=== PATIENT | female | born 1935 | race Two or more races ===

== ENCOUNTER 2017-03-28 20:51 | Inpatient (IN) | payer MEDICARE, MEDICAID ==
[~2017-03-28] VITALS: Ht 152.4 cm; Wt 68.0 kg
[~2017-03-28 20:51] MED LIST: ESCI10TA PO; IBUP-1482 PO; METF500T4 PO; NAPR500T PO; TRAM50TA2 PO; ZOLP5TAB2 PO
--- NOTE | 2017-03-28 21:14 | NUR ---
PT BIB PA WITH A C/O RLE PAIN S/P FALL X 2 WKS AGO WHILE GETTING INTO HER WHEELCHAIR. PT IS THAI SPEAKING ONLY. PT HAS ECCHYMOSIS ON RT THIGH AND RT KNEE. RLE EXTERNALLY ROTATED. RT LEG SHORTENING NOTED. PT IS AA&O X2.
--- NOTE | 2017-03-28 21:34 | NUR ---
ANNABELLA PARRISH IS AT THE BEDSIDE FOR EVAL. ALIRIO ZAPIEN IS AT THE BEDSIDE FOR TRANSLATION.
[2017-03-28 21:51] LABS: BASOPHILS % (AUTO) 0.2 % (0.0-2.0); EOSINOPHILS # (AUTO) 0.1 /CMM (0.0-0.7); EOSINOPHILS % (AUTO) 0.8 % (0.0-6.0); HEMATOCRIT 26 % (33-45); HEMOGLOBIN 8.9 g/dL (11.5-14.8); LYMPHOCYTES # (AUTO) 1.8 /CMM (0.8-4.8); LYMPHOCYTES % (AUTO) 11.6 % (20.0-44.0); MEAN CORPUSCULAR HEMOGLOBIN 30 PG (26.0-33.0); MEAN CORPUSCULAR HGB CONC 35 g/dl (31.0-36.0); MEAN CORPUSCULAR VOLUME 88 fL (82-100); MONOCYTES % (AUTO) 6.7 % (2.0-12.0); NEUTROPHILS # (AUTO) 12.5 /CMM (1.8-8.9); NEUTROPHILS % (AUTO) 80.7 % (43.0-81.0); PLATELET COUNT (AUTO) 626 /CMM (150-450); RDW COEFFICIENT OF VARIATION 13.6 (11.5-15.0); RED BLOOD CELL COUNT(AUTO) 2.95 MIL/uL (4.0-5.2); WHITE BLOOD COUNT (AUTO) 15.4 K/uL (4.3-11.0)
[2017-03-28] MEDS ORDERED: IV SET PRIMARY 1 EA INFUS.SET MC ONE (21:55)
[2017-03-28] MEDS ORDERED: IV NS 0.9% 1,000 ML ONE (21:55)
[2017-03-28] MEDS ORDERED: MORPHINE SULFATE INJ 4 MG/ML DISP.SYRIN ONE (21:55)
[2017-03-28] MEDS ORDERED: ONDANSETRON HCL/PF 4 MG/2 ML VIAL ONE (21:55)
[2017-03-28 21:59] LABS: CALCIUM, SERUM 8.6 mg/dL (8.5-10.1); POTASSIUM 4.3 mmol/L (3.5-5.1)
[2017-03-28] MEDS ORDERED: IV NS 0.9% 1,000 ML BAG IV ONE (22:00)
[2017-03-28] MEDS ORDERED: ONDANSETRON HCL/PF 4 MG/2 ML VIAL IVP ONE (22:00)
[2017-03-28] MEDS ORDERED: MORPHINE SULFATE INJ 2 MG/ML DISP.SYRIN IV ONE (22:00)
[2017-03-28 22:03] LABS: INR 1.09 (0.87-1.13); PROTHROMBIN TIME 11.4 SECS (9.5-12.7)
[2017-03-28 22:05] LABS: ALBUMIN 2.7 g/dL (3.4-5.0); BILIRUBIN,DIRECT 0.1 mg/dL (0.0-0.2); BILIRUBIN,TOTAL 0.4 mg/dL (0.2-1.0); TOTAL PROTEIN, SERUM 6.8 g/dL (6.4-8.2)
--- NOTE | 2017-03-28 22:50 | NUR ---
PT APPEARS TO BE SLEEPING SOUNDLY. NO S/S OF PAIN OR DISTRESS. VSS.
--- NOTE | 2017-03-28 23:12 | NUR ---
[facility] PAGED, DENY SEBASTIAN MOLD MAKER PLASTER
--- NOTE | 2017-03-28 23:21 | NUR ---
ANNABELLA FRAGA IS SPEAKING TO THE PT'S DAUGHTER ON THE PHONE RE: PLAN OF CARE.
--- NOTE | 2017-03-28 23:22 | NUR ---
ARNEL CALLED, PLANISHING HAMMER OPERATOR, TRANSFERRED CALL TO JOHNIE WISEMAN)
--- NOTE | 2017-03-28 23:22 | NUR ---
CALLED NURSING SUP. FOR MS BED
--- NOTE | 2017-03-28 23:33 | NUR ---
Alexandra GATES NP IS AT THE BEDSIDE.
[2017-03-29] VITALS (11 sets, daily range): BP systolic 114–154; BP diastolic 54–94
[2017-03-29] MEDS ORDERED: Z GUARD REMEDY 2 OZ OINT TP PRN
[2017-03-29] MEDS ORDERED: MAG HYDROX/AL HYDROX/SIMETH 30 ML UDC PO PRN
--- NOTE | 2017-03-29 01:30 | NUR ---
RN NOTE; ADMITTED A 81Y/O , F, ALERT, TAMAZIGHT SPEAKING. BREATHING EVENLY. NO SOB, NO DISTRESS. W/ C/O PAIN UPON MOVEMENT OTHER MCNEIL STABLE AND PAIN FREE. SKIN INTACT HOWEVER W/ BRUISES ON RLE . IV SITE INTACT . NEEDS ATTENDED . VS: WNL. HEART MONITOR WAS PLACED READING SR. CALL LIGHT WITHIN REACH, BED ALARM ON. PLACED A CALL TO [facility] AND SPOKE TO [facility] REGARDING IMMUNIZATION STATUS . BUT NO DATA AVAILABLE TO F/U. WILL CONT TO MONITOR.
[2017-03-29] MEDS ORDERED: IV SET PRIMARY PUMP SET 1 EA INFUS.SET MC ONE (01:52)
[2017-03-29] MEDS ORDERED: IV NS 0.9% 1,000 ML ONE (01:53)
[2017-03-29] MEDS: IV NS 0.9% 1,000 ML IV PRN ×2 (02:09→20:14)
[2017-03-29] MEDS ORDERED: IV D5W 50 ML IV ONE (02:50)
[2017-03-29] MEDS ORDERED: CEFTRIAXONE 1 G VIAL ONE (02:50)
[2017-03-29] MEDS ORDERED: SECONDARY IV SET 1 EA INFUS.SET MC ONE (02:53)
[2017-03-29] MEDS: CEFTRIAXONE 1 G in IV D5W 50 ML IV SCH (02:58)
[2017-03-29] MEDS ORDERED: DEXTROSE 50%-WATER 50 ML DISP.SYRIN IV PRN (03:00)
--- NOTE | 2017-03-29 06:13 | NUR ---
RN NOTE; PT IN BED AWAKE AND ALERT. BREATHING EVENLY. NO SOB, NO DISTRESS. NO ACUTE CHANGES SINCE ADMISSION. ON TELE MONITORING READING SR. W/ C/O PAIN UPON REPOSITIONING OTHER MCNEIL STABLE. CLEANED AND DRIED. NPO AT THIS TIME. CALL LIGHT WITHIN REACH. WILL CONT TO MONITOR AND WILL ENDORSE TO AM SHIFT FOR DEBORA.
[2017-03-29] MEDS ORDERED: MORPHINE SULFATE INJ 2 MG/ML DISP.SYRIN ONE (06:27)
[2017-03-29] MEDS: MORPHINE SULFATE INJ 2 MG/ML DISP.SYRIN IV PRN ×4 (06:33→21:48)
--- NOTE | 2017-03-29 06:35 | NUR ---
RN NOTE; MORPHINE GIVEN FOR C/O SEVERE PAIN AND SCREAMING. NPO FOR POSSIBLE SX. NEEDS ATTENDED. WILL CONT TO MONITOR .
[2017-03-29] MEDS: BLOOD SUGAR DIAGNOSTIC 1 EACH STRIP IN SCH ×4 (06:43→21:58)
--- NOTE | 2017-03-29 08:00 | NUR ---
RN NOTES RECEIVED PATIENT IN BED, SLEEPING WITH NO SIGNS OF DISTRESS. PATIENT IS ERITREAN SPEAKING ONLY, NO SIGNS OF PAIN OR DISCOMFORT NOTED. PATIENT IS NPO FOR POSSIBLE SURGERY TODAY, WILL FOLLOW UP WITH MD. ALL NEEDS MET, KEPT CLEAN AND DRY.
[2017-03-29 08:43] LABS: BASOPHILS % (AUTO) 0.3 % (0.0-2.0); EOSINOPHILS # (AUTO) 0.2 /CMM (0.0-0.7); EOSINOPHILS % (AUTO) 2.3 % (0.0-6.0); HEMATOCRIT 25 % (33-45); HEMOGLOBIN 8.2 g/dL (11.5-14.8); LYMPHOCYTES # (AUTO) 1.7 /CMM (0.8-4.8); LYMPHOCYTES % (AUTO) 15.3 % (20.0-44.0); MEAN CORPUSCULAR HEMOGLOBIN 29 PG (26.0-33.0); MEAN CORPUSCULAR HGB CONC 33 g/dl (31.0-36.0); MEAN CORPUSCULAR VOLUME 89 fL (82-100); MONOCYTES # (AUTO) 0.8 /CMM (0.1-1.30); MONOCYTES % (AUTO) 7.2 % (2.0-12.0); NEUTROPHILS # (AUTO) 8.1 /CMM (1.8-8.9); NEUTROPHILS % (AUTO) 74.9 % (43.0-81.0); PLATELET COUNT (AUTO) 513 /CMM (150-450); RDW COEFFICIENT OF VARIATION 14.8 (11.5-15.0); RED BLOOD CELL COUNT(AUTO) 2.78 MIL/uL (4.0-5.2); WHITE BLOOD COUNT (AUTO) 10.8 K/uL (4.3-11.0)
[2017-03-29] MEDS: ESCITALOPRAM OXALATE (10 MG) 10 MG TABLET PO SCH (09:00)
[2017-03-29 09:06] LABS: IRON, SERUM 23 ug/dl (50-175); TOTAL IRON BINDING CAPACITY 209 ug/dl (250-450)
[2017-03-29 09:09] LABS: THYROID STIMULATING HORMONE 2.694 uIU/mL (0.358-3.74)
[2017-03-29 09:15] LABS: CALCIUM, SERUM 8.3 mg/dL (8.5-10.1); CREATININE 0.8 mg/dL (0.6-1.3); MAGNESIUM 1.6 mg/dL (1.8-2.4); PHOSPHORUS 3.1 mg/dL (2.5-4.9); POTASSIUM 4.3 mmol/L (3.5-5.1)
[2017-03-29 09:54] LABS: FERRITIN 161 ng/mL (8-388); TROPONIN I < 0.017 ng/mL (0.00-0.056)
[2017-03-29] MEDS ORDERED: IV NS 0.9% 250 ML IV ONE (10:40)
[2017-03-29] MEDS ORDERED: BLOOD IV SET 1 EA INFUS.SET MC ONE (10:40)
[2017-03-29] MEDS: PANTOPRAZOLE 40 MG VIAL IV SCH (12:03)
[2017-03-29] MEDS: INSULIN REGULAR, HUMAN 100 UNIT/ML 3 ML VIAL SQ PRN ×2 (12:37→17:41)
[2017-03-29] MEDS: HYDROCODONE/APAP 5/325MG 1 EACH TABLET PO PRN ×3 (14:30→23:57)
--- NOTE | 2017-03-29 15:30 | NUR ---
RN NOTES PATIENT REMAINS STABLE IN NO ACUTE DISTRESS. PATIENT NOTED SCREAMING AND CRYING, GIVEN MORPHINE WITH GOOD RELIEF. PATIENT SEEN AND EVALUATED BY DR. BRENNER. MD DISCUSSED PLAN OF CARE WITH FAMILY. 1` UNIT OF PRBCS ORDERED AND ADMINISTERED, PATIENT TOLERATED WELL, NO COMPLICATIONS NOTED. PATIENT IS NO LONGER NPO, PER DR BRENNER RESUME DIET, SURGERY WILL BE HELD AND REASSESS IN AM.
--- NOTE | 2017-03-29 19:20 | NUR ---
RN OPEN NOTES RECEIVED PATIENT AWAKE IN BED SCREAMING IN PAIN GUARDING RIGHT LEG. PER RN PATIENT HAD JUST BEEN GIVEN NORCO 5/325 FOR PAIN. ALERT AND ORIENTED. NO SIGNS OF DISTRESS, BREATHING EVEN AND UNLABORED. IV ACCESS IN RAC, PATENT AND INTACT, NO SIGNS OF REDNESS OR INFILTRATION. BED IN LOW LOCKED POSITION WITH SIDE RAILS X3. CALL LIGHT WITHIN REACH. WILL CONTINUE TO MONITOR. Addendum: 03/30/17 at 0042 by MARIA GUADALUPE ALARCON RN PATIENT ON TELE WITH SR NOTED
--- NOTE | 2017-03-29 19:31 | NUR ---
RN CLOSING NOTES PATIENT NOTED SCREAMING AND GUARDING RIGHT HIP MOST OF THE SHIFT. PAIN MEDS GIVEN WITH SOME RELIEF. INSERTED MOHR CATH 16 SERBIAN, PATENT AND DRAINING WELL. NO ACUTE CHANGES IN CONDITION NOTED. ALL NEEDS MET, KEPT CLEAN AND DRY.
[2017-03-29] MEDS: ONDANSETRON HCL/PF 4 MG/2 ML VIAL IVP PRN (20:13)
--- NOTE | 2017-03-29 21:48 | NUR ---
RN NOTES ADMINISTERED MORPHINE 2MG FOR PAIN IN RIGHT HIP. PATIENT NOTED TO BE SCREAMING AND GUARDING RIGHT LEG. WILL CONTINUE TO MONITOR. Addendum: 03/30/17 at 0036 by MARIA GUADALUPE ALARCON RN NOTED BP 133/84 P96
--- NOTE | 2017-03-29 22:30 | NUR ---
RN NOTES DID NOT GIVE INSULIN COVERAGE FOR BS 139. PATIENT HAS POOR PO INTAKE. WILL CONTINUE TO MONITOR.
--- NOTE | 2017-03-29 23:00 | NUR ---
RN NOTES P/C- SPOKE WITH DAUGHTER VESTA, INFORMED HER THAT PATIENT IS SCHEDULED FOR SURGERY TOMORROW AM AT 1100 AND WE DO NOT HAVE CONSENT YET. PER DAUGHTER SHE NEEDS TO DISCUSS WITH HER FAMILY THEY HAVE NOT DECIDED ON THE SURGERY YET. INFORMED HER THAT IF SHE HAS ANY FURTHER QUESTIONS REGARDING THE SURGERY SHE CAN COME IN TOMORROW AM BEFORE SURGERY OR SPEAK WITH SURGEON OVER THE PHONE.
--- NOTE | 2017-03-29 23:35 | NUR ---
RN NOTES P/C FROM GRAND DAUGHTER DAGMAR, PER GRANDDAUGHTER HER FAMILY HAS DECIDED TO CANCEL SURGERY FOR TOMORROW AM THEY WANT MORE TIME TO MAKE A DECISION AND DO MORE RESEARCH. INFORMED HER THAT SHE CAN SPEAK WITH SURGEON IN THE AM IF THEY HAVE CONCERNS AND THAT IF WE CANCEL TOMORROWS SURGERY WE DO NOT KNOW WHEN PATIENT WILL BE ABLE TO RESCHEDULE. SHE STATED THEY WOULD STILL LIKE TO CANCEL THE SURGERY AT THIS TIME. CHARGE NURSE MADE AWARE. I WILL INFORM MD IN THE AM AND WILL CONTINUE TO MONITOR.
--- NOTE | 2017-03-29 23:57 | NUR ---
RN NOTES ADMINISTERED COLUSA FOR PAIN IN RIGHT HIP. PATIENT NOTED TO BE SCREAMING AND GUARDING RIGHT LEG, NODES HER HEAD YES WHEN ASKED IF SHES HAVING PAIN. WILL CONTINUE TO MONITOR. Addendum: 03/30/17 at 0036 by MARIA GUADALUPE ALARCON RN NOTED BP 119/65 P 91
[2017-03-30] VITALS (17 sets, daily range): BP systolic 119–148; BP diastolic 64–88
[2017-03-30] MEDS: CEFTRIAXONE 1 G in IV D5W 50 ML IV SCH (02:22)
[2017-03-30] MEDS: MORPHINE SULFATE INJ 2 MG/ML DISP.SYRIN IV PRN ×4 (02:38→22:27)
--- NOTE | 2017-03-30 02:38 | NUR ---
RN NOTES ADMINISTERED MORPHINE 2MG FOR PAIN IN RIGHT HIP. PATIENT NOTED TO BE SCREAMING, FACIAL GRIMACING AND GUARDING RIGHT LEG. BP NOTED 134/61 P87. WILL CONTINUE TO MONITOR.
--- NOTE | 2017-03-30 06:30 | NUR ---
RN NOTES DID NOT GIVE INSULIN COVERAGE FOR BS 158. PATIENT HAS BEEN NPO SINCE MIDNIGHT AND IS SCHEDULED FOR SURGERY THIS AM.
--- NOTE | 2017-03-30 06:40 | NUR ---
RN NOTES ADMINISTERED MORPHINE 2MG FOR PAIN IN RIGHT HIP. PATIENT NOTED TO BE SCREAMING, FACIAL GRIMACING AND GUARDING RIGHT LEG. BP NOTED 120/76 P89. WILL CONTINUE TO MONITOR.
--- NOTE | 2017-03-30 07:01 | NUR ---
RN CLOSING NOTES PATIENT AWAKE IN BED. ALERT AND ORIENTED. NO SIGNS OF DISTRESS, BREATHING EVEN AND UNLABORED. IV ACCESS IN RAC WITH NS INFUSING, PATENT AND INTACT, NO SIGNS OF REDNESS OR INFILTRATION. NO SIGNIFICANT CHANGES THROUGH THE NIGHT. ALL NEEDS MET. BED IN LOW LOCKED POSITION WITH SIDE RAILS X3. CALL LIGHT WITHIN REACH. WILL ENDORSE TO AM SHIFT FOR DEBORA. Addendum: 03/30/17 at 0720 by MARIA GUADALUPE ALARCON RN PATIENT ON TELE MONITORING WITH SR/JCT AT TIME NOTED.
--- NOTE | 2017-03-30 07:05 | NUR ---
RN NOTES DR. GARCIA MADE AWARE OF FAMILY NOT GIVING CONSENT FOR SURGERY AND WANTING TO CANCEL TODAY'S SCHEDULED SURGERY. CHARGE NURSE ALSO AWARE. WILL INFORM AM RN.
[2017-03-30] MEDS: BLOOD SUGAR DIAGNOSTIC 1 EACH STRIP IN SCH ×4 (07:30→22:35)
--- NOTE | 2017-03-30 07:30 | NUR ---
RN MS NOTES. RECEIVED PATIENT BED AWAKE SCREAMING, PAIN MEDICATION WAS GIVEN BY NIGHT RN. NO APPARENT DISTRESS NOTED, NO SOB. PATIENT IS NPO FRO POSSIBLE SURGERY, FAMILY UNSURE IF THE WANT THE SURGERY, NO CONSENT SIGNED. IV LINE PATENT F/C DRAINING WELL. ALL NEEDS MET, CALL LIGHT WITHIN REACH
[2017-03-30] MEDS: HYDROCODONE/APAP 5/325MG 1 EACH TABLET PO PRN ×2 (08:52→14:35)
[2017-03-30] MEDS: ESCITALOPRAM OXALATE (10 MG) 10 MG TABLET PO SCH (09:00)
[2017-03-30] MEDS: PANTOPRAZOLE 40 MG VIAL IV SCH (09:38)
[2017-03-30 09:44] LABS: BASOPHILS % (AUTO) 0.2 % (0.0-2.0); EOSINOPHILS # (AUTO) 0.2 /CMM (0.0-0.7); EOSINOPHILS % (AUTO) 2.1 % (0.0-6.0); HEMATOCRIT 28 % (33-45); HEMOGLOBIN 9.3 g/dL (11.5-14.8); LYMPHOCYTES # (AUTO) 2.1 /CMM (0.8-4.8); LYMPHOCYTES % (AUTO) 18.9 % (20.0-44.0); MEAN CORPUSCULAR HEMOGLOBIN 30 PG (26.0-33.0); MEAN CORPUSCULAR HGB CONC 34 g/dl (31.0-36.0); MEAN CORPUSCULAR VOLUME 89 fL (82-100); MONOCYTES # (AUTO) 0.9 /CMM (0.1-1.30); MONOCYTES % (AUTO) 7.8 % (2.0-12.0); NEUTROPHILS # (AUTO) 7.9 /CMM (1.8-8.9); PLATELET COUNT (AUTO) 501 /CMM (150-450); RED BLOOD CELL COUNT(AUTO) 3.13 MIL/uL (4.0-5.2); WHITE BLOOD COUNT (AUTO) 11.1 K/uL (4.3-11.0)
--- NOTE | 2017-03-30 10:00 | NUR ---
RN MS NOTES PT'S DAUGHTER IN LAW VESTA SPOKE WITH DR. BRENNER OVER THE PHONE, PLAN OF CARE DISCUSSED, FAMILY NOT GIVING CONSENT YET, MD ORDERED 1 MORE UNIT OF PRBC, FAMILY INFOMED.
[2017-03-30 10:04] LABS: ALANINE AMINOTRANSFERASE 17 U/L (12-78); ALBUMIN 2.2 g/dL (3.4-5.0); ALKALINE PHOSPHATASE 97 U/L (46-116); ASPARTATE AMINOTRANSFERASE 16 U/L (15-37); BILIRUBIN,TOTAL 0.4 mg/dL (0.2-1.0); CALCIUM, SERUM 8.5 mg/dL (8.5-10.1); CARBON DIOXIDE 22 mmol/L (21-32); CHLORIDE 107 mmol/L (98-107); CREATININE 0.9 mg/dL (0.6-1.3); GLUCOSE 139 mg/dL (74-106); MAGNESIUM 1.3 mg/dL (1.8-2.4); PHOSPHORUS 3.1 mg/dL (2.5-4.9); POTASSIUM 4.1 mmol/L (3.5-5.1); SODIUM SERUM 139 mmol/L (136-145); TOTAL PROTEIN, SERUM 6.4 g/dL (6.4-8.2); TROPONIN I < 0.017 ng/mL (0.00-0.056); UREA NITROGEN, BLOOD 19 mg/dL (7-18)
[2017-03-30] MEDS ORDERED: FUROSEMIDE 40 MG/4 ML VIAL IV ONE (10:30)
--- NOTE | 2017-03-30 11:49 | NUR ---
RN MS NOTES PT'S DAUGHTER IN LAW VESTA CAME TO VISIT PT, SPOKE WITH HER ON THE PHONE AND STATED THAT THEY ARE GIVING CONSENT TO THE PROCEDURE, CONSENTS SIGNED.
--- NOTE | 2017-03-30 12:15 | NUR ---
RN MS NOTES FAMILY INFORMED THAT SURGERY WILL BE DONE TODAY, SPOKE WITH VESTA, AGREED WITH PLAN, SHE WILL INFORM REST OF THE FAMILY, PT PICKED UP BY [facility] STAFF [facility]IA [facility], VITAL SIGNS STABLE, NOT IN DISTRESS.
[2017-03-30] MEDS ORDERED: BUPIVACAINE 0.5 % PF 150 MG/30 ML VIAL ONE (12:27)
[2017-03-30] MEDS ORDERED: BACITRACIN 50000 UNITS/VIAL ONE (12:27)
[2017-03-30] MEDS ORDERED: FENTANYL PF 100MCG/2ML AMPUL ONE (13:32)
[2017-03-30] MEDS ORDERED: HYDROMORPHONE 1 MG/1 ML DISP.SYRIN ONE (13:43)
[2017-03-30] MEDS ORDERED: ANESTHESIA TRAY IN PYXIS 1 EA TRAY MC ONE (14:10)
[2017-03-30] MEDS ORDERED: IV NS 0.9% 250 ML IV ONE (15:00)
[2017-03-30] MEDS ORDERED: BLOOD IV SET 1 EA INFUS.SET MC ONE (15:00)
[2017-03-30] MEDS: ONDANSETRON HCL/PF 4 MG/2 ML VIAL IVP PRN (15:14)
--- NOTE | 2017-03-30 15:30 | NUR ---
RN MS NOTES PATIENT RETURNED FOR OR, S/P IM RODDING OF RIGHT HIP. TOLERATED WELL VS STABLE 143/88 108 20 97.7 93%RA. RESIDENT NOTED SCREAMING AND GUARDING THE LEG, MEDICATION GIVEN WILL CONTINUE TO MONITOR.
--- NOTE | 2017-03-30 16:45 | NUR ---
RN MS NOTES ONGOING TRANSFUSION OF 1 UNIT OF PRBCS, TOLERATING WELL, NO SIGNS OF ADVERSE REACTIONS NOTED. VITALS SIGNS STABLE THROUGHOUT TRANSFUSION. PAIN MEDICATIONS GIVEN WITH SOME RELIEF. ALL NEEDS MET, KEPT CLEAN AND DRY.
[2017-03-30] MEDS: INSULIN REGULAR, HUMAN 100 UNIT/ML 3 ML VIAL SQ PRN ×2 (18:17→22:36)
[2017-03-30] MEDS: RIVAROXABAN 10 MG TABLET PO SCH (18:37)
--- NOTE | 2017-03-30 19:02 | NUR ---
RN MS NOTES PATIENT S/P IM RODDING OF THE LEFT HIP, WITH TWO DRESSINGS, MINIMAL BLEEDING NOTED ON LOWER DRESSING. RESIDENT TOLERATED BLOOD TRANSFUSION WELL, NO ADVERSE REACTIONS NOTED. MORPHINE GIVEN AT 1850. POST OP ORDERS NOTED AND CARRIED OUT. ALL NEEDS MET KEPT CLEAN ANS DRY.
--- NOTE | 2017-03-30 19:20 | NUR ---
MS/RN NOTES RECEIVED PT. LYING IN BED RESTING. PT. IS EASILY AROUSABLE TO NAME AND TOUCH. AWAKE, ALERT AND ORIENTED TO SELF. BREATHING EVEN AND UNLABORED ON ROOM AIR. NO SOB, RESPIRATORY DISTRESS OR COMPLAINTS OF PAIN NOTED AT THIS TIME. PT. WITH RIGHT WRIST IV SALINE LOCK PRESENT, PATENT AND INTACT. PT. WITH MOHR CATHETER PRESENT, PATENT AND INTACT DRAINING CLEAR YELLOW URINE. PT. IS S/P IM RODDING OF THE RIGHT HIP, WITH TWO SURGICAL DRESSINGS PRESENT AND INTACT. SMALL AMOUNT OF SEROSANGUINOUS DRAINAGE NOTED ON BOTH DRESSINGS. BED IN LOWEST POSITION, CALL LIGHT WITHIN REACH, WILL CONTINUE TO MONITOR.
[2017-03-30] MEDS ORDERED: IV NS 0.9% 1,000 ML ONE (21:12)
--- NOTE | 2017-03-30 21:30 | NUR ---
MS/RN NOTES PT. REPEATEDLY SCREAMING OUT FOR FAMILY. PT. WANTS SOMEONE TO SIT WITH HER AND HOLD HER HAND. CALLED PT. DAUGHTER VESTA. PT. DAUGHTER STATED SHE WOULD TRY AND COME TO SIT WITH HER MOM FOR A FEW HOURS. WILL CONTINUE TO MONITOR.
[2017-03-30] MEDS: IV NS 0.9% 1,000 ML IV PRN (21:45)
--- NOTE | 2017-03-30 22:05 | NUR ---
MS/RN NOTES PT. REFUSING IV FLUID HYDRATION. EDUCATED PT. ON IMPORTANCE OF IV FLUID HYRDATION. PT. IS CONFUSED AND CONTINUES TO REFUSE IV FLUIDS. PT. IS DRINKING WATER. WILL ATTEMPT TO ADMINISTER IV FLUIDS AT A LATER TIME. WILL CONTINUE TO MONITOR.
--- NOTE | 2017-03-30 22:07 | NUR ---
MS/RN NOTES SPOKE WITH ELECTROMYOGRAPHIC TECHNICIAN DENY SEBASTIAN PT. HAVING DIFFICULTY SLEEPING NO PRN SLEEPING MEDICATION ORDERED. PT. TAKES AMBIEN 5MG AT HOME FOR SLEEP. PER ELECTROMYOGRAPHIC TECHNICIAN NEW ORDER: AMBIEN 5MG PO X1 AND FOLLOW UP IN THE MORNING. WILL CARRY OUT ORDER. WILL CONTINUE TO MONITOR.
[2017-03-30] MEDS ORDERED: ZOLPIDEM TARTRATE 5 MG TABLET PO ONE (22:30)
[2017-03-31] VITALS (7 sets, daily range): BP systolic 124–141; BP diastolic 68–77
[2017-03-31] MEDS ORDERED: ZOLPIDEM TARTRATE 5 MG TABLET ONE (00:25)
--- NOTE | 2017-03-31 01:20 | NUR ---
MS/RN NOTES PT. REMOVED RIGHT UPPER SURGICAL DRESSING. SCANT BLEEDING NOTED AT SURGICAL SITE. PLACED NEW SURGICAL DRESSING ON PT. RIGHT UPPER POST OP SURGICAL SITE. WILL CONTINUE TO MONITOR.
[2017-03-31] MEDS: CEFTRIAXONE 1 G in IV D5W 50 ML IV SCH (02:32)
[2017-03-31] MEDS: HYDROCODONE/APAP 5/325MG 1 EACH TABLET PO PRN ×4 (03:14→22:04)
--- NOTE | 2017-03-31 05:59 | NUR ---
MS/RN NOTES NOTIFIED TESTING PROJECTS ADMINISTRATOR DENY SEBASTIAN PT. IS UNABLE TO RELAX AND HAS BEEN YELLING LOUDLY FOR THE LAST HOUR. PER TESTING PROJECTS ADMINISTRATOR NO NEW ORDERS AT THIS TIME CONTINUE TO MONITOR.
--- NOTE | 2017-03-31 06:09 | NUR ---
MS/RN NOTES PT. LYING IN BED AWAKE, ALERT AND ORIENTED TO SELF. BREATHING EVEN AND UNLABORED ON ROOM AIR. NO SOB, RESPIRATORY DISTRESS OR S/S OF PAIN NOTED AT THIS TIME. PT. WITH RIGHT WRIST IV SALINE LOCK PRESENT, PATENT AND INTACT. PT. CONTINUES TO REFUSE IV FLUID HYDRATION. PT. WITH MOHR CATHETER PRESENT, PATENT AND INTACT. EMPTIED 2000 ML CLEAR YELLOW URINE. ALL PT. NEEDS MET. BED IN LOWEST POSITION, CALL LIGHT WITHIN REACH, WILL ENDORSE TO DAYSHIFT NURSE FOR CONTINUITY OF CARE.
[2017-03-31] MEDS: BLOOD SUGAR DIAGNOSTIC 1 EACH STRIP IN SCH ×4 (06:43→21:58)
[2017-03-31] MEDS: INSULIN REGULAR, HUMAN 100 UNIT/ML 3 ML VIAL SQ PRN ×3 (06:45→21:59)
--- NOTE | 2017-03-31 08:00 | NUR ---
PT IS ALERT AND CONFUSED, SCREAMING ABOUT PAINFUL INCISION ON HIP. PT HAS BRUISES ALONG RIGHT LEG AND HIP WITH 2 SURGICAL DRESSING ON RT HIP. PT HAS A FOLLEY CATHETER AND DIAPER . iv IN RIGHT WRIST WITH ns RUNNING AT 75 ML/HR
[2017-03-31] MEDS: PANTOPRAZOLE 40 MG VIAL IV SCH (08:28)
[2017-03-31] MEDS: ESCITALOPRAM OXALATE (10 MG) 10 MG TABLET PO SCH (08:28)
[2017-03-31] MEDS: MORPHINE SULFATE INJ 2 MG/ML DISP.SYRIN IV PRN ×3 (08:29→20:03)
[2017-03-31 09:21] LABS: BASOPHILS % (AUTO) 0.2 % (0.0-2.0); EOSINOPHILS # (AUTO) 0.1 /CMM (0.0-0.7); HEMATOCRIT 30 % (33-45); HEMOGLOBIN 10.5 g/dL (11.5-14.8); LYMPHOCYTES # (AUTO) 1.6 /CMM (0.8-4.8); LYMPHOCYTES % (AUTO) 11.3 % (20.0-44.0); MEAN CORPUSCULAR HEMOGLOBIN 32 PG (26.0-33.0); MEAN CORPUSCULAR HGB CONC 36 g/dl (31.0-36.0); MEAN CORPUSCULAR VOLUME 91 fL (82-100); MONOCYTES # (AUTO) 0.9 /CMM (0.1-1.30); MONOCYTES % (AUTO) 5.9 % (2.0-12.0); NEUTROPHILS # (AUTO) 11.9 /CMM (1.8-8.9); NEUTROPHILS % (AUTO) 81.6 % (43.0-81.0); PLATELET COUNT (AUTO) 482 /CMM (150-450); RDW COEFFICIENT OF VARIATION 13.2 (11.5-15.0); RED BLOOD CELL COUNT(AUTO) 3.28 MIL/uL (4.0-5.2); WHITE BLOOD COUNT (AUTO) 14.5 K/uL (4.3-11.0)
[2017-03-31] MEDS: MAGNESIUM HYDROXIDE 30 ML UDC PO PRN (10:50)
[2017-03-31 14:19] LABS: EOSINOPHILS % (MANUAL) 1 % (0-4); LYMPHOCYTES % (MANUAL) 11 % (16-48); MONOCYTES % (MANUAL) 4 % (0-11.0); NEUTROPHILS % (MANUAL) 84 (42-76); PLATELET ESTIMATE ADEQUATE
[2017-03-31 14:20] LABS: ANISOCYTOSIS 1+
[2017-03-31] MEDS: RIVAROXABAN 10 MG TABLET PO SCH (17:36)
--- NOTE | 2017-03-31 18:00 | NUR ---
MS RN CLOSING NOTES PT RESTING IN BED WITH OCCASIONAL SCREAMING.NO S/S OF PAIN OR DISTRESS.CALL LIGHT PLACED WITHIN REACH.
--- NOTE | 2017-03-31 19:50 | NUR ---
ms rn initial notes: received report from tae watts pt on bed, awake, polish speaking, screaming on and off, yelling to everyvody, pt non stop screaming the whole day and night, on iv pain medication and oral pain medicine, md aware of pt's behavior. right wrist iv acces patent and flushing well, infusing with ns at 75ml/hr. s/p right hip surgery 03/29/17, 1st white surgical dressing c/d/i, the other small surgical dressing noted top have old blood stain. no active bleeding noted. right leg and thigh noted with bruise and swelling +2. ble offloaded. pt has reynolds catheter in placed with adequate output. safety precaution for fall initiated call light in reach will continue to monitor
--- NOTE | 2017-03-31 20:03 | NUR ---
ms rn notes: pt screaming yelling for pain, prn pain medication morphine 2mg ivp administered to the pt at this time, will continue to monitor and reassess
--- NOTE | 2017-03-31 20:10 | NUR ---
ms rn notes: placed ice pack on pt's right thigh to help decrease swelling, after 15mins removed, then placed it back again for 15mins.
--- NOTE | 2017-03-31 22:01 | NUR ---
ms rn notes: checked blood sugar and reveal 207, 4units of insulin given per sliding scale, will monitor pt for any s/s of hypo or hyperglycemia
--- NOTE | 2017-03-31 22:06 | NUR ---
ms rn notes: pt screaming yelling, rubbing site , s/p right hip surgery appears to be in pain, prn norco 5/325 mg tab po administered to the pt at this time,will continue to monitor and reassess
--- NOTE | 2017-03-31 23:00 | NUR ---
MS RN NOTES: SEEN PT SLEEPING AT THIS TIME, APPEARS COMFORTABLE, NOT IN ANY DISTRESS WILL CONTINUE TO MONITOR
[2017-04-01] MEDS: CEFTRIAXONE 1 G in IV D5W 50 ML IV SCH (01:49)
[2017-04-01] MEDS: MORPHINE SULFATE INJ 2 MG/ML DISP.SYRIN IV PRN ×3 (02:28→18:43)
--- NOTE | 2017-04-01 02:31 | NUR ---
RN NOTES: PATIENT C/O PAIN, POINTING AT R HIP. AREA PAINFUL TO TOUCH, PATIENT NOTED TO BE SCREAMING / GRIMACING. ADMINISTERED MORPHINE 2 MG IV PRN. WILL CONT TO MONITOR./
[2017-04-01 05:20] VITALS: BP 136/65
[2017-04-01] MEDS: HYDROCODONE/APAP 5/325MG 1 EACH TABLET PO PRN ×3 (05:32→21:59)
--- NOTE | 2017-04-01 05:32 | NUR ---
ms rn notes: pt been yelling screaming and pointing to her right leg, morphine 2mg ivp administered at around 2am, prn norco 5/325 mg tab po administered to the pt at this time, vs taken and recorded, will continue to monitor
[2017-04-01] MEDS: IV NS 0.9% 1,000 ML IV PRN (05:37)
[2017-04-01] MEDS: BLOOD SUGAR DIAGNOSTIC 1 EACH STRIP IN SCH (06:19)
[2017-04-01] MEDS: INSULIN REGULAR, HUMAN 100 UNIT/ML 3 ML VIAL SQ PRN ×3 (06:21→22:10)
--- NOTE | 2017-04-01 06:21 | NUR ---
MS RN NOTES: CHECKED BLOOD SUGAR AND REVEAL 138, 2UNITS OF INSULIN GIVEN PER SLIDING SCALE, PT ON CCHO DIET AND IVF WILL MONITOR FOR ANY S/S/ OF HYPOGLYCEMIA
--- NOTE | 2017-04-01 06:52 | NUR ---
ms rn closing notes: pt on bed,awake, calm and comfortable at this time, no sob noted, right hip dressing remains c/d/i, small dressing remains with old blood stain. ble offloaded. reynolds catheter emptied. sitter at bed side. right wrist iv access remains infusing with ns at 75ml/hr. vs remains stable, needs attended. safety precaution for fall remains engaged, call light in reach, will endorse to day rn for timmy.
--- NOTE | 2017-04-01 07:41 | NUR ---
MS RN OPENING NOTE PATIENT IS ASLEEP AT THIS TIME. NO PAIN AT THIS TIME NOTED. NO SOB OR DISTRESS NOTED. CALL LIGHT WITHIN REACH. SAFETY MEASURES IMPLEMENTED. AUSTRIAN SPEAKING. S/P RIGHT HIP SX FOR PELVIC FRACTURE ON 03/30. IV INTACT AND PATENT NO REDNESS OR SWELLING. WILL CONTINUE TO MONITOR
[2017-04-01 08:00] VITALS: BP 127/62
[2017-04-01] MEDS ORDERED: DEXTROSE 50%-WATER 50 ML DISP.SYRIN IV PRN (08:00)
[2017-04-01] MEDS ORDERED: *INSULIN REGULAR(HUMULIN R)HUM 100 UNIT/ML VIAL SQ PRN (08:00)
[2017-04-01] MEDS: ESCITALOPRAM OXALATE (10 MG) 10 MG TABLET PO SCH (09:10)
[2017-04-01] MEDS: PANTOPRAZOLE 40 MG VIAL IV SCH (09:10)
[2017-04-01] MEDS: BLOOD SUGAR DIAGNOSTIC 1 EACH STRIP VI SCH ×4 (09:10→22:06)
[2017-04-01] MEDS: METFORMIN 500 MG TABLET PO SCH ×2 (09:16→16:45)
[2017-04-01] MEDS ORDERED: SECONDARY IV SET 1 EA INFUS.SET MC ONE (14:27)
[2017-04-01] MEDS ORDERED: IV SET PRIMARY PUMP SET 1 EA INFUS.SET MC ONE (14:27)
[2017-04-01] MEDS: SOD FERRIC GLUC 125 MG in IV NS 0.9% 100 ML IV SCH (14:43)
[2017-04-01 16:00] VITALS: BP 116/62
[2017-04-01] MEDS: RIVAROXABAN 10 MG TABLET PO SCH (16:45)
--- NOTE | 2017-04-01 18:18 | NUR ---
MS RN CLOSING NOTE PATIENT IS ALERT AND ORIENTED x3. KHMER SPEAKING. NO PAIN AT THIS TIME. NO SOB OR DISTRESS NOTED. ALL DUE MEDICATION GIVEN ORDERED. SAFETY MEASURES IMPLEMENTED. NO SIGNIFICANT CHANGES THROUGHOUT SHIFT. IV INTACT AND PATENT NO REDNESS OR SWELLING NOTED. ON 1.5L/MIN OF OXYGEN VIA NASAL CANNULA. WILL ENDORSE TO PHOTOVOLTAIC PANEL INSTALLER NURSE
[2017-04-01 20:00] VITALS: BP 127/64
--- NOTE | 2017-04-01 20:00 | NUR ---
MS/RN OPENING NOTES PATIENT IN BED, AWAKE AND ABLE TO VERBALIZE NEEDS BY LOUD VOICE AND SCREAMING EPISODE. ASSIST TO CARE AT ALL TIMES AND ASSIST PATIENT PREFER TO BE ATTENDED. PAIN MONITORED. NO D/D OF SOB WILL CONTINUE TO MONITOR
[2017-04-01] MEDS ORDERED: IV NS 0.9% 1,000 ML ONE (21:10)
[2017-04-02] MEDS: MORPHINE SULFATE INJ 2 MG/ML DISP.SYRIN IV PRN ×2 (00:08→11:59)
--- NOTE | 2017-04-02 00:10 | NUR ---
MS/RN NOTES PATIENT AWAKE AND VERBALIZE NEEDS AT ALL TIMES BY VERBAL SCREAMING . GRIMACE AND GUARDING ON RIGHT HIP. PAIN MEDICATION PROVIDED WILL MONITOR FOR EFFECTIVENESS.PAIN LEVEL 8/10.
[2017-04-02] MEDS: CEFTRIAXONE 1 G in IV D5W 50 ML IV SCH (01:36)
[2017-04-02] MEDS: HYDROCODONE/APAP 5/325MG 1 EACH TABLET PO PRN ×3 (02:49→19:50)
--- NOTE | 2017-04-02 02:49 | NUR ---
MS/RN NOTES PATIENT PROVIDED IV ATB , RE INSERT NEW IV DUE TI IV SITE REDDENED REQUIRE NEED OF PAIN MEDICATION DUE TO GRIMACE, GUARDING ON SITE.NORCO 5/325 PO WAS GIVEN. WILL CONTINUE TO MONITOR.
[2017-04-02] MEDS: ACETAMINOPHEN 325 MG TABLET PO PRN ×3 (05:01→22:55)
--- NOTE | 2017-04-02 05:01 | NUR ---
MS/RN NOTES PATIENT IN BED, VERBALIZE NEEDS AT ALL TIMES AND OBSERVED GUARDING,SCREAMING REQUIRE TO BE IN PATIENTS AT ALL TIMES.
--- NOTE | 2017-04-02 06:09 | NUR ---
MS/RN CLOSING NOTES PATIENT IN BED, AWAKING INTERMITTENTLY, REQUIRES ASSISTANCE AND REMINDERS AT ALL TIMES.KEPT COMFORTABLE AND MONITORED FOR PAIN MEDICATION. WILL ENDORSE TO AM RN REGARDING PLAN OF CARE.CALL LIGHTS WITHIN REACH.
[2017-04-02] MEDS: BLOOD SUGAR DIAGNOSTIC 1 EACH STRIP VI SCH ×4 (06:55→22:32)
[2017-04-02 07:36] LABS: BASOPHILS % (AUTO) 0.3 % (0.0-2.0); EOSINOPHILS # (AUTO) 0.2 /CMM (0.0-0.7); EOSINOPHILS % (AUTO) 2.6 % (0.0-6.0); HEMATOCRIT 28 % (33-45); HEMOGLOBIN 9.1 g/dL (11.5-14.8); LYMPHOCYTES # (AUTO) 1.6 /CMM (0.8-4.8); LYMPHOCYTES % (AUTO) 17.7 % (20.0-44.0); MEAN CORPUSCULAR HEMOGLOBIN 30 PG (26.0-33.0); MEAN CORPUSCULAR HGB CONC 33 g/dl (31.0-36.0); MEAN CORPUSCULAR VOLUME 91 fL (82-100); MONOCYTES # (AUTO) 0.6 /CMM (0.1-1.30); NEUTROPHILS # (AUTO) 6.6 /CMM (1.8-8.9); NEUTROPHILS % (AUTO) 72.4 % (43.0-81.0); PLATELET COUNT (AUTO) 445 /CMM (150-450); RDW COEFFICIENT OF VARIATION 15.1 (11.5-15.0); RED BLOOD CELL COUNT(AUTO) 3.02 MIL/uL (4.0-5.2); WHITE BLOOD COUNT (AUTO) 9.1 K/uL (4.3-11.0)
--- NOTE | 2017-04-02 07:50 | NUR ---
MS RN OPENING NOTE PATIENT IS ALERT AND ORIENTED X3. NO PAIN AT THIS TIME. NO SOB OR DISTRESS NOTED. CALL LIGHT WITHIN REACH. SAFETY MEASURES IMPLEMENTED. IV INTACT AND PATENT NO REDNESS OR SWELLING NOTED. SYRIAC SPEAKING. ABLE TO COMMUNICATE NEEDS. WILL CONTINUE TO MONITOR
[2017-04-02 07:52] LABS: CALCIUM, SERUM 8.3 mg/dL (8.5-10.1); CREATININE 0.8 mg/dL (0.6-1.3); MAGNESIUM 1.7 mg/dL (1.8-2.4); PHOSPHORUS 2.6 mg/dL (2.5-4.9); POTASSIUM 4.1 mmol/L (3.5-5.1)
[2017-04-02 08:00] VITALS: BP 148/73
[2017-04-02] MEDS: ESCITALOPRAM OXALATE (10 MG) 10 MG TABLET PO SCH (08:55)
[2017-04-02] MEDS: METFORMIN 500 MG TABLET PO SCH ×2 (08:55→16:16)
[2017-04-02] MEDS: PANTOPRAZOLE 40 MG VIAL IV SCH (08:55)
[2017-04-02] MEDS ORDERED: SECONDARY IV SET 1 EA INFUS.SET MC ONE (10:58)
[2017-04-02] MEDS: Magnesium 1GM/D5W 100ML PREMIX 100 ML IV SCH ×2 (11:03→12:10)
[2017-04-02] MEDS: INSULIN REGULAR, HUMAN 100 UNIT/ML 3 ML VIAL SQ PRN (12:08)
[2017-04-02] MEDS: SOD FERRIC GLUC 125 MG in IV NS 0.9% 100 ML IV SCH (13:54)
[2017-04-02] MEDS: MAGNESIUM HYDROXIDE 30 ML UDC PO PRN (14:41)
[2017-04-02] MEDS: RIVAROXABAN 10 MG TABLET PO SCH (16:17)
[2017-04-02 16:19] VITALS: BP 153/74
--- NOTE | 2017-04-02 18:32 | NUR ---
MS RN CLOSING NOTE PATIENT IS ALERT AND ORIENTED. NO SOB OR DISTRESS NOTED. NO PAIN AT THIS TIME. ALL DUE MEDICATIONS GIVEN ORDERED. SAFETY MEASURES IMPLEMENTED. CALL LIGHT WITHIN REACH AT ALL TIMES. ALL NEEDS ATTENDED TOO. [place]ER SPEAKING. IV INTACT AND PATENT NO REDNESS NOTED. WILL ENDORSE TO SECURITY RISK ANALYST NURSE
[2017-04-02 19:00] VITALS: BP 154/79
--- NOTE | 2017-04-02 19:31 | NUR ---
MS/RN OPENING NOTES PATIENT IN BED, ABLE TO VERBALIZE NEEDS W/ SCREAMING EPISODE REQUIRE ASSISTANCE AT ALL TIMES. CONSTANT PERIOD OF VERBALIZING NEEDS FOR ATTENTION WILL BE ASSISTING TO CARE FOR TONIGHT. WILL CONTINUE TO CARE AND ATTEND TO NEEDS.
--- NOTE | 2017-04-02 22:56 | NUR ---
ms/rn notes PATIENT REQUIRE ALOT OF RE ASSURANCE AND EXAUSTION TO SELF DUE TO SCREAMING EPISODE EVERYTIME. PREFER TO BE ATTENDED AT ALL TIMES. PAIN MONITORING
[2017-04-03] MEDS: MORPHINE SULFATE INJ 2 MG/ML DISP.SYRIN IV PRN ×3 (00:29→09:13)
[2017-04-03] MEDS: ACETAMINOPHEN 325 MG TABLET PO PRN (01:55)
--- NOTE | 2017-04-03 01:58 | NUR ---
ms/rn notes patient awake, verbalize needs to be assisted and repositioned at all times, assistance needed and provided as needed pain med for comfort measures/tylenol 650 mg po given. patient monitored
[2017-04-03] MEDS: CEFTRIAXONE 1 G in IV D5W 50 ML IV SCH (02:05)
--- NOTE | 2017-04-03 04:12 | NUR ---
ms/rn notes patient reported pain , gave needed pain medication for severe pain.will continue to monitor.effectiveness of medication. medication not able to scan barcode. informed charge nurse.
[2017-04-03] MEDS: HYDROCODONE/APAP 5/325MG 1 EACH TABLET PO PRN ×2 (06:02→12:26)
[2017-04-03] MEDS: BLOOD SUGAR DIAGNOSTIC 1 EACH STRIP VI SCH ×2 (06:27→12:06)
--- NOTE | 2017-04-03 06:46 | NUR ---
MS/RN CLOSING NOTES PATIENT IN BED, AWAKE, ABLE TO VERBALIZE NEEDS AT ALL TIMES, BY CONSTANT SCREAMING AND YELLING. ATTEND TO NEEDS AT ALL TIMES AND PREFER TO HAVE SOMEONE AT BEDSIDE FOR REASSURANCE.REQUIRE EXTENSIVE ASSISTANCE . PAIN MONITORING AND KEPT SKIN INTACT AND DRY. WILL ENDORSE TO AM RN FOR CONTINUITY OF CARE.
[2017-04-03 07:11] LABS: CALCIUM, SERUM 8.5 mg/dL (8.5-10.1); CREATININE 0.8 mg/dL (0.6-1.3); POTASSIUM 4.2 mmol/L (3.5-5.1)
--- NOTE | 2017-04-03 07:30 | NUR ---
RN OPENING NOTES RECEIVED PATIENT IN BED, AWAKE, HEAD OF BED ELEVATED, NO SOB OR DISTRESS NOTED. ALERT AND ORIENTED X 4. IV INTACT AND PATENT. KEPT PATIENT CLEAN AND COMFORTABLE IN BED, CALL LIGHT WITHIN REACH. WILL CONTINUE TO MONITOR ACCORDINGLY Addendum: 04/03/17 at 1929 by MICHELLE GIBBONS RN AMENDMENT PATIENT ALERT AND ORIENTED TIMES 2
[2017-04-03 08:00] VITALS: BP 157/83
[2017-04-03] MEDS: PANTOPRAZOLE 40 MG VIAL IV SCH (09:11)
[2017-04-03] MEDS: METFORMIN 500 MG TABLET PO SCH (09:12)
[2017-04-03] MEDS: ESCITALOPRAM OXALATE (10 MG) 10 MG TABLET PO SCH (09:12)
--- NOTE | 2017-04-03 09:15 | NUR ---
I GAVE 2 MG OF MORPHINE AT 0915. PAIN LEVEL 8/10
[2017-04-03] MEDS: INSULIN REGULAR, HUMAN 100 UNIT/ML 3 ML VIAL SQ PRN (12:11)
[2017-04-03] MEDS: SOD FERRIC GLUC 125 MG in IV NS 0.9% 100 ML IV SCH (14:00)
--- NOTE | 2017-04-03 16:00 | NUR ---
RN CLOSING NOTES ALL NEEDS PROVIDED, ATTENDED, AND ANTICIPATED. KEPT PATIENT CLEAN AND COMFORTABLE IN BED, CALL LIGHT WITHIN PATIENT REACH, WILL CONTINUE TO MONITOR ACCORDINGLY. ENDORSED TO EMT'S TO CONTINUE CARE.
== END 2017-04-03 16:00 | DRG 480 ==
LOC: ER 20:52 → MED 03-29 00:13 → TELE 03-29 03:02 → MED 03-30 08:46
PROVIDERS: ADMIT Contractor; ATTEND Contractor
PROC: 30233N1 Transfusion of Nonautologous Red Blood Cells into Peripheral Vein, Percutaneous Approach (ICD-10-PCS; 2017-03-29)
PROC: 0QS604Z Reposition Right Upper Femur with Internal Fixation Device, Open Approach (ICD-10-PCS; principal; 2017-03-30 12:30)
DX: S72.141A Displaced intertrochanteric fracture of right femur, initial encounter for closed fracture (principal); N17.0 Acute kidney failure with tubular necrosis; E44.0 Moderate protein-calorie malnutrition; R65.10 Systemic inflammatory response syndrome (SIRS) of non-infectious origin without acute organ dysfunction; I50.32 Chronic diastolic (congestive) heart failure; W05.0XXA Fall from non-moving wheelchair, initial encounter; I11.0 Hypertensive heart disease with heart failure; Y92.129 Unspecified place in nursing home as the place of occurrence of the external cause; I25.10 Atherosclerotic heart disease of native coronary artery without angina pectoris; F03.90 Unspecified dementia, unspecified severity, without behavioral disturbance, psychotic disturbance, mood disturbance, and anxiety; E11.65 Type 2 diabetes mellitus with hyperglycemia; W19.XXXA Unspecified fall, initial encounter; D63.8 Anemia in other chronic diseases classified elsewhere; F32.9 Major depressive disorder, single episode, unspecified; M81.0 Age-related osteoporosis without current pathological fracture; M19.90 Unspecified osteoarthritis, unspecified site; K21.9 Gastro-esophageal reflux disease without esophagitis; Z86.73 Personal history of transient ischemic attack (TIA), and cerebral infarction without residual deficits; E78.5 Hyperlipidemia, unspecified; Z91.81 History of falling; Z68.29 Body mass index [BMI] 29.0-29.9, adult
CPT/HCPCS: 36415; 71010-TC; 73501; 73510-TC; 80048-TC; 80053-TC; 80061-TC; 80076-TC; 82378; 82728-TC; 82962-TC; 83540-TC; 83735-TC; 84100-TC; 84443-TC; 84484-TC; 85025-TC; 85730-TC; 86301; 86850-TC; 86921-TC; 87040-TC; 87081-TC; 93307-TC; A4606; A6209; A6402; C1713; C1750; C9113; J0690; J0696; J1100; J1170; J1815; J1940; J2270; J2370; J2405; J2704; J2916; J3010; J3475; J3490; J7030; J7050; J7060; P9016-BL; Z7610

== ENCOUNTER 2018-08-15 10:47 | Emergency (ER) | payer MEDICARE, MEDICAID ==
[~2018-08-15] VITALS: Ht 152.4 cm; Wt 68.0 kg
[~2018-08-15 10:47] MED LIST changes: -IBUP-1482 PO; +METF-440 PO; -METF500T4 PO; -NAPR500T PO
--- NOTE | 2018-08-15 10:59 | NUR ---
GINO FROM [facility] DT N/V X 2 DAYS. PATIENT RECEIVED AWAKE AND ALERT X 2,. PATIENT NOTED ON O2 VIA NC 2LPM SATING WELL,. PATIENT NOT IN DISTRESS. DENIES ANY PAIN OR DISCOMFORT. VSS
--- NOTE | 2018-08-15 11:20 | NUR ---
NEW IV STARTED ON LAC, 20G. BLOOD DRAWN AND SENT TO LAB.
[2018-08-15] MEDS: IV NS 0.9% 500 ML BAG IV ONE (11:29)
--- NOTE | 2018-08-15 11:33 | NUR ---
MAINFRAME CONSULTANT AT BEDSIDE.
[2018-08-15 11:50] LABS: BASOPHILS # (AUTO) 0.1 /CMM (0.0-0.2); BASOPHILS % (AUTO) 0.6 % (0.0-2.0); EOSINOPHILS % (AUTO) 2.3 % (0.0-6.0); HEMATOCRIT 35 % (33-45); HEMOGLOBIN 11.3 g/dL (11.5-14.8); LYMPHOCYTES # (AUTO) 3.6 /CMM (0.8-4.8); LYMPHOCYTES % (AUTO) 38.3 % (20.0-44.0); MEAN CORPUSCULAR HEMOGLOBIN 27 PG (26.0-33.0); MEAN CORPUSCULAR HGB CONC 33 g/dl (31.0-36.0); MEAN CORPUSCULAR VOLUME 82 fL (82-100); MONOCYTES # (AUTO) 0.7 /CMM (0.1-1.30); NEUTROPHILS # (AUTO) 4.8 /CMM (1.8-8.9); NEUTROPHILS % (AUTO) 51.8 % (43.0-81.0); PLATELET COUNT (AUTO) 416 /CMM (150-450); RDW COEFFICIENT OF VARIATION 15.4 (11.5-15.0); RED BLOOD CELL COUNT(AUTO) 4.23 MIL/uL (4.0-5.2); WHITE BLOOD COUNT (AUTO) 9.4 K/uL (4.3-11.0)
--- NOTE | 2018-08-15 11:51 | NUR ---
Jarrett Rae MD [phone] PAGED \
[2018-08-15 11:59] LABS: CALCIUM, SERUM 8.8 mg/dL (8.5-10.1); CARBON DIOXIDE 33 mmol/L (21-32); CHLORIDE 99 mmol/L (98-107); CREATININE 0.8 mg/dL (0.6-1.3); GLUCOSE 131 mg/dL (74-106); SODIUM SERUM 135 mmol/L (136-145); UREA NITROGEN, BLOOD 21 mg/dL (7-18)
[2018-08-15 12:04] LABS: ALANINE AMINOTRANSFERASE 15 U/L (12-78); ALBUMIN 2.7 g/dL (3.4-5.0); ALKALINE PHOSPHATASE 83 U/L (46-116); ASPARTATE AMINOTRANSFERASE 14 U/L (15-37); BILIRUBIN,DIRECT 0.1 mg/dL (0.0-0.2); BILIRUBIN,TOTAL 0.3 mg/dL (0.2-1.0); LIPASE 108 U/L (73-393)
[2018-08-15 12:11] LABS: TROPONIN I < 0.017 ng/mL (0.00-0.056)
--- NOTE | 2018-08-15 12:44 | NUR ---
URINE OBTAINED AND SENT TO LAB.
[2018-08-15 13:19] LABS: APPEARANCE,URINE Clear (CLEAR); BILIRUBIN,URINE Negative (NEGATIVE); BLOOD, URINE Negative Ery/uL (NEGATIVE); COLOR,URINE Yellow (YELLOW); KETONES,URINE Negative (NEGATIVE); LEUKOCYTE ESTERASE ,URINE Moderate (NEGATIVE); NITRITE, URINE Positive (NEGATIVE); PH,URINE 5.5 (5.0-8.0); PROTEIN,URINE Negative (NEGATIVE); UGLUCOSE Negative (NEGATIVE); UROBILINOGEN,URINE 0.2 EU/dL (0.2)
[2018-08-15] MEDS: CEFTRIAXONE 1GM BAG (ER ONLY) 1 GM/50 ML PIGGYBACK IV ONE (13:20)
[2018-08-15 13:25] LABS: BACTERIA,URINE Many /HPF (None Seen); SQUAMOUS EPITHELIAL CELL,UR Moderate /HPF (None Seen)
--- NOTE | 2018-08-15 13:50 | NUR ---
[facility] ETA 15 MINS
[2018-08-15 14:23] VITALS: BP 113/56
--- NOTE | 2018-08-15 14:26 | NUR ---
REPORT GIVEN TO EMT AT BEDSIDE. Patient discharged back to [facility] in stable condition. Written and verbal after care instructions given. Patient verbalizes understanding of instruction.
== END 2018-08-15 14:25 ==
LOC: ER 10:56
DX: N39.0 Urinary tract infection, site not specified (principal); R10.9 Unspecified abdominal pain; R11.2 Nausea with vomiting, unspecified; R42 Dizziness and giddiness; I11.0 Hypertensive heart disease with heart failure; I50.9 Heart failure, unspecified; E11.9 Type 2 diabetes mellitus without complications; F03.90 Unspecified dementia, unspecified severity, without behavioral disturbance, psychotic disturbance, mood disturbance, and anxiety; K21.9 Gastro-esophageal reflux disease without esophagitis; F32.9 Major depressive disorder, single episode, unspecified; F41.9 Anxiety disorder, unspecified; G47.00 Insomnia, unspecified; F43.10 Post-traumatic stress disorder, unspecified; R94.31 Abnormal electrocardiogram [ECG] [EKG]; Z98.49 Cataract extraction status, unspecified eye; Z86.73 Personal history of transient ischemic attack (TIA), and cerebral infarction without residual deficits
CPT/HCPCS: 36415; 71045-TC; 80048-TC; 80076-TC; 81000-TC; 83690-TC; 84484-TC; 85025-TC; 87086-TC; 87186-TC; A4606; J0696; J7040; Z7610